=== PATIENT | female | born 1995 | race Caucasian/White ===

== ENCOUNTER 2019-12-17 17:39 | Inpatient (IN) ==
[2019-12-17] MEDS ORDERED: OXYTOCIN 30 UNITS/500 ML BAG IV PRN ×2 (18:39→22:08)
[2019-12-17] MEDS ORDERED: LACTATED RINGER'S 1,000 ML IV PRN (18:39)
[2019-12-17] MEDS ORDERED: PENICILLIN G POTASSIUM 3 MU in DEXTROSE 5% 100 ML IV PRN (18:39)
--- NOTE | 2019-12-17 18:47 | History & Physical Report ---
Date of Service December 17, 2019 Assessment & Plan (1) Normal labor: IUP at term in labor with SPROM GBS positive will start PCN prophylaxis. anticipate vaginal planning to go unmedicated if she can Present on Admission?: Yes (2) Carrier of group B Streptococcus: Present on Admission?: Yes History of Present Illness Primary Care Provider: NO PCP Patient is a 24 yo white female EDC 12/29/19 who presents with SPROM of copious bloody fluid & regular ctns. has otherwise been uncomplicated except for GBS positive status. Allergies Allergy/AdvReac Type Severity Reaction Status Date / Time No Known Drug Allergies Allergy Verified 12/16/19 11:11 Home Medications Home Medications Medication Instructions Recorded Confirmed Type esomeprazole magnesium PO 06/28/19 12/16/19 History prenat.vits,mikael,uat-yzcs-tleab 1 tab PO DAILY 07/11/19 12/16/19 History Patient History Medical History (Updated 12/17/19 @ 18:49 by Glendy Velez MD, FACOG) History of asthma History of depression History of migraine History of varicella vaccination Nausea and vomiting in (Inactive) Surgical History S/P wisdom tooth extraction Social History Preferred Language: Slovak marital status: Current Living Situation: Spouse Other Information That Helps Us Care for You: No Feels Safe at Home: Yes Safety Concerns: Feels Safe At This Time Smoking Status: Never smoker Hx Alcohol Use: No Hx Substance Use: No Review of Systems All systems reviewed & are unremarkable except as noted in HPI & below Physical Exam Constitutional: WD/WN, vitals as above Respiratory: normal respiratory effort, lungs clear to auscultation Cardiovascular: RRR, no murmur, no edema Gastrointestinal (Abdomen): normal bowel sounds, soft, nontender, no hepatosplenomegaly Psychiatric: A+Ox3, euthymic affect Genitourinary: OB Exam Abdomen: + vertex, + estimated weight (7-8 pounds) and + regular contractions (4-5 minutes) Manual OB Exam: + cervical dilation 3 cm, + cervical effacement 50%, + station high and + amniotic fluid bloody OB Exam Monitor Tracing: + external FHT monitor used, + external uterine monitor used, + category I and + normal FHT variability Results & Data Vital Signs (Past 12 Hours) Vital Signs Temp Pulse Resp BP 12/17/19 18:08 97.9 F 20 12/17/19 17:49 109 H 135/80
[2019-12-17 19:00] LABS: Hematocrit (blood only) 35.5 % (37-47); Hemoglobin 11.6 g/dL (12.0-16.0); Mean Corpuscular Hemoglobin 31.2 pg (25-34); Mean Corpuscular Volume 95.4 fL (80-100); Platelet Count 226 K/uL (130-400); RDW Coefficient of Variation 14.1 % (11.5-14.5); Red Blood Count 3.72 M/uL (4.2-5.4); White Blood Count 9.38 K/uL (4.8-10.8)
[2019-12-17] MEDS ORDERED: PENICILLIN G POTASSIUM 6 MU in DEXTROSE 5% 250 ML IV ONE (19:00)
[2019-12-17 19:02] LABS: Mean Corpuscular Hgb Conc 32.7 g/dL (32-36)
[2019-12-17] MEDS ORDERED: fentaNYL 2MCG/ML ROPIV 1.25MG/ML 100 ML BAG EPI ONE (23:08)
[2019-12-17] MEDS ORDERED: fentaNYL citrate 100 MCG/2 ML VIAL ONE (23:08)
[2019-12-17] MEDS ORDERED: ePHEDrine sulfate 50 MG/ML AMP ONE (23:08)
[2019-12-17] MEDS ORDERED: BUPIVACAINE 0.25% 30 ML VIAL ONE (23:08)
--- NOTE | 2019-12-17 23:34 | Anesthesiology Consultation ---
Date of Service December 17, 2019 Assessment & Plan Chart Review Chart Review: Acceptable Risk for Labor Epidural Consults Requested none History Height/Weight Height: 5 ft 7 in Weight: 130.181 kg Allergies Allergy/AdvReac Type Severity Reaction Status Date / Time No Known Drug Allergies Allergy Verified 12/16/19 11:11 Medications Home Medications Medication Instructions Recorded Confirmed Last Taken esomeprazole magnesium [Nexium] 20 mg PO DAILY 12/17/19 12/17/19 12/17/19 08:00 vit-iron fum-folic ac 1 tab PO DAILY 12/17/19 12/17/19 12/16/19 21:00 [ Vitamin] pseudoephedrine HCl [Sudafed] 30 mg PO Q6H PRN 12/17/19 12/17/19 12/17/19 10:00 Active Medications Generic Name Dose Route Start Last Admin Trade Name Freq PRN Reason Stop Dose Admin Lactated Ringer's 1,000 mls @ 125 mls/hr 12/17/19 18:39 12/17/19 23:13 Lr IV 12/19/19 18:38 999 mls/hr .Q8H PRN Infusion L&D Protocol Protocol Past Medical History Medical History History of asthma History of depression History of migraine History of varicella vaccination Nausea and vomiting in (Inactive) Past Family History Family History Mother Thyroid disease Past Surgical History Surgical History S/P wisdom tooth extraction Social History Smoking Status: Never smoker Hx Alcohol Use: No Hx Substance Use: No substance use type: does not use Physical Exam Vital Signs Last Vital Signs Temp 36.9 C 12/17/19 22:41 Pulse 92 H 12/17/19 18:54 Resp 20 12/17/19 18:55 BP 132/70 12/17/19 18:54 Testing Laboratory Results 12/17/19 18:48
[2019-12-17] MEDS ORDERED: fentaNYL 2MCG/ML ROPIV 1.25MG/ML 100 ML BAG EPI PRN (23:35)
[2019-12-17] MEDS ORDERED: NALBUPHINE HCL INJ 10 MG/ML AMP IV PRN (23:35)
[2019-12-17] MEDS ORDERED: DiphenhydrAMINE HCL 50 MG/ML VIAL IV PRN (23:35)
[2019-12-17] MEDS ORDERED: NALOXONE HCL 0.4 MG/1 ML VIAL/CARP IV PRN (23:35)
[2019-12-17] MEDS ORDERED: ePHEDrine sulfate 50 MG/ML AMP IV PRN (23:35)
[2019-12-17] MEDS ORDERED: NALOXONE HCL 1 MG in SODIUM CHLORIDE 0.9% 1000ML 1,000 ML IV PRN (23:35)
[2019-12-18] MEDS ORDERED: BENZOCAINE 20% AER SPR 82.5 GM CAN EXT PRN (02:57)
[2019-12-18] MEDS ORDERED: OXYTOCIN 30 UNITS/500 ML BAG IV PRN (02:57)
[2019-12-18] MEDS ORDERED: ACETAMINOPHEN 325 MG TAB PO PRN (02:57)
[2019-12-18] MEDS ORDERED: DIPHTHERIA/TETANUS/PERTUSSIS 0.5 ML SYR/VIAL IM ONE (02:57)
[2019-12-18] MEDS ORDERED: OXYCODONE/ACETAMINOPHEN 5mg/325mg TAB PO PRN (02:57)
[2019-12-18] MEDS ORDERED: bisacodyL 10 MG SUPP PR PRN (02:57)
[2019-12-18] MEDS ORDERED: HYDROCORTISONE ACETATE 25 MG SUPP PR PRN (02:57)
[2019-12-18] MEDS ORDERED: SUPERCREAM 0.870% 15 GM JAR EXT PRN (02:57)
[2019-12-18] MEDS: IBUPROFEN 600 MG TAB PO PRN ×4 (04:51→20:15)
--- NOTE | 2019-12-18 08:07 | Delivery Summary ---
DATE OF OPERATION: 12/18/2019 The patient is a 24-year-old 2, para 1-0-0-1 white female, EDC of [birth year]/29/[birth year]19, who presented at 38 and 3/7th weeks with ruptured membranes for copious amount of blood-tinged fluid. She was 3 cm upon arrival in Labor and Delivery. She was requesting epidural analgesia and Pitocin was begun shortly after this as she still remained at 3 cm dilated. She progressed to full dilation and pushed effectively over intact perineum for delivery of a viable female . There was a tight nuchal cord after delivering the head which was clamped and cut prior to delivering the rest of the . The rest of the delivered easily and was placed on the mother's abdomen for further attention and drying. There was spontaneous crying and the infant was moving all 4 limbs. The placenta followed shortly after intact with a 3-vessel cord. There did not appear to be any evidence of abruption on the placenta on inspection. The heart tones remained category 1, some occasional variable throughout her labor and pushing stage. The bladder was drained for 200 mL of clear urine after the delivery and there was 200 mL EBL. A first-degree perineal laceration was repaired with 3-0 chromic in the usual fashion. A 1% lidocaine was used to anesthetize the area of the repair prior to repairing the perineal tear. Mother and were doing well after delivery. I attest to the content of the Intraoperative Record and any orders documented therein. Any exception s are noted below.
--- NOTE | 2019-12-18 08:35 | Anesthesia Procedure Note ---
Date of Service December 18, 2019 Anesthesia Post Epidural Note Vital Signs Vital Signs: Temp Pulse Resp BP Pulse Ox 36.8 C 93 H 18 108/73 97 12/18/19 05:15 12/18/19 05:15 12/18/19 05:15 12/18/19 05:15 12/18/19 05:15 Pain Intensity Bilateral Episiotomy/Laceration: Pain Intensity: 2 Notes Mental Status: alert / awake / arousable Nausea / Vomiting: adequately controlled Pain: adequately controlled Airway Patency, RR, SpO2: stable & adequate BP & HR: stable & adequate Hydration State: stable & adequate Neuraxial Anesthesia: was administered and sensory block is resolving Anesthetic Complications: no major complications apparent and Pt Satisfied with anesthetic care Epidural: Removed without complications and With tip intact
[2019-12-18] MEDS: PRENATAL VITAMIN 1 TAB PO SCH (08:56)
[2019-12-18] MEDS: DOCUSATE SODIUM 100 MG CAP PO SCH ×2 (08:56→20:15)
[2019-12-19 06:20] LABS: Hematocrit (blood only) 33.2 % (37-47); Hemoglobin 10.7 g/dL (12.0-16.0); Mean Corpuscular Hemoglobin 31.4 pg (25-34); Mean Corpuscular Hgb Conc 32.2 g/dL (32-36); Mean Corpuscular Volume 97.4 fL (80-100); Mean Platelet Volume 10.1 fL (7.4-10.4); Platelet Count 206 K/uL (130-400); RDW Coefficient of Variation 14.5 % (11.5-14.5); RDW Standard Deviation 51.8 fL (36.4-46.3); Red Blood Count 3.41 M/uL (4.2-5.4); White Blood Count 8.39 K/uL (4.8-10.8)
--- NOTE | 2019-12-19 06:24 | Obstetrical Progress Note ---
Date of Service <Mary Dumont DO - Last Filed: 12/19/19 06:54> December 19, 2019 Assessment & Plan <Mary Dumont DO - Last Filed: 12/19/19 06:54> (1) Encounter for care and examination after delivery: 24 yo F PPD #1 following vaginal delivery at 38.3w, doing well and without complaints this morning. - PPD #1. - Feels well, ambulating well, voiding well. - Will continue routine care. - Following d/c will have f/u in 6 weeks. - Adequately treated with Pencillin for GBS +. Subjective <Mary Dumont DO - Last Filed: 12/19/19 06:54> Alyssa is a 24 yo female ; PPD # 1 following vaginal delivery at 38.3weeks; doing well this AM; no abdominal cramping/pain; voiding well; tolerating meals overnight, able to ambulate some within the room. Breast feeding is "going well this time around". Review of Systems Constitutional: denies fever, chills, sweats, headache Respiratory: denies SOB, difficulty breathing Cardiac: denies CP, chest palpitations, chest pressure Breast: denies breast pain : denies dysuria Physical Exam <Mary Dumont DO - Last Filed: 12/19/19 06:54> General: patient is alert and oriented, in NAD Cardiac: +S1/S2, no murmurs rubs or gallops Respiratory: lungs CTA b/l, anteriorly and posteriorly, no wheezes rales or rhonchi, no increased work of breathing, symmetric chest rise, no respiratory distress Abdomen: soft, NT, +bowel sounds Uterus: uterine fundus firm, palpable below the level of the umbilicus Lower Extremities: no LE edema or swelling, no deep calf pain, Adryan's sign negative b/l Results & Data <Mary Dumont DO - Last Filed: 12/19/19 06:54> Vital Signs (Past 12 Hours) Vital Signs Temp Pulse Resp BP 12/19/19 00:15 36.9 C 58 L 18 106/64 12/18/19 19:59 36.8 C 80 18 106/68 Laboratory Results Laboratory Results - last 24 hr 12/19/19 05:56 WBC 8.39 RBC 3.41 L Hgb 10.7 L Hct 33.2 L MCV 97.4 MCH 31.4 MCHC 32.2 RDW Std Deviation 51.8 H RDW Coeff of Josef 14.5 Plt Count 206 MPV 10.1 Medications Administered Current Medications Acetaminophen (Tylenol) 650 mg PO Q6H PRN PRN Reason: Pain/CROOKS/Fever Stop: 01/17/20 02:56 Benzocaine (Dermoplast Pain Relieving [place]) 1 appln EXT PRN PRN PRN Reason: Perineal Discomfort Stop: 01/17/20 02:56 Last Admin: 12/18/19 05:35 Dose: 82.5 appln Documented by: Bisacodyl (Dulcolax) 5 mg PO 1999 [facility] Stop: 12/19/19 20:01 Bisacodyl (Dulcolax) 10 mg FL DAILY PRN PRN Reason: No BM on 2nd post- day Stop: 01/17/20 02:56 Cocaine HCl (Supercream 0.870%) 1 gm EXT BID PRN PRN Reason: Hemorrhoidal Inflammation Stop: 01/01/20 02:56 Docusate Sodium (Colace) 100 mg PO DAILY@08,21 [facility] Stop: 01/17/20 07:59 Last Admin: 12/18/19 20:15 Dose: 100 mg Documented by: Hydrocortisone (Anusol Hc) 25 mg FL BID PRN PRN Reason: Hemorrhoidal Inflammation Stop: 01/17/20 02:56 Lactated Ringer's (Lr) 1,000 mls @ 125 mls/hr IV .Q8H PRN; Protocol PRN Reason: L&D Protocol Stop: 12/19/19 18:38 Last Infusion: 12/18/19 05:58 Dose: Infused Documented by: Oxytocin (Pitocin) 30 units in 500 mls @ 333.333 mls/hr IV .Q1H30M PRN; Protocol PRN Reason: Bleeding Control Stop: 01/16/20 18:38 Oxytocin (Pitocin) 30 units in 500 mls @ 333 mls/hr IV .Q1H31M PRN; Protocol PRN Reason: Labor Induction/Augmentation Stop: 12/19/19 22:07 Last Titration: 12/18/19 05:58 Dose: Infused Documented by: Oxytocin (Pitocin) 30 units in 500 mls @ 333.333 mls/hr IV .Q1H30M PRN; Protocol PRN Reason: Bleeding Control Stop: 01/17/20 02:56 Ibuprofen (Motrin) 600 mg PO Q4H PRN PRN Reason: Pain/CROOKS/Cramping/Fever Stop: 01/17/20 02:56 Last Admin: 12/18/19 20:15 Dose: 600 mg Documented by: Oxycodone/Acetaminophen (Percocet 5mg/325mg) 1 tab PO Q4H PRN PRN Reason: Pain not relieved by... Stop: 01/01/20 02:56 Prenat Multivit/[place]/Iron/Folic Ac ( Vitamin) 1 tab PO DAILY@08 ARIEL Stop: 01/17/20 07:59 Last Admin: 12/18/19 08:56 Dose: 1 tab Documented by: <Glendy Velez MD, FACOG - Last Filed: 12/19/19 07:29> Co-Signing Physician Notes Resident Physician Supervision Note: I interviewed and examined the patient. Discussed with Dr. Leighton Dumont and agree with findings and plan as documented in the note. Any exceptions or clarifications are listed here: [None] Documented By: Glendy Velez MD, FACOG Resident Activity Tracking <Mary Dumont DO - Last Filed: 12/19/19 06:54> Resident Involvement: Resident Care Provided Care Provided: OB Delivery
[2019-12-19] MEDS: PRENATAL VITAMIN 1 TAB PO SCH (08:32)
[2019-12-19] MEDS: DOCUSATE SODIUM 100 MG CAP PO SCH (08:32)
[2019-12-19] MEDS: IBUPROFEN 600 MG TAB PO PRN ×2 (08:32→11:56)
[2019-12-19] MEDS ORDERED: bisacodyL 5 MG TABEC PO SCH (20:00)
== END 2019-12-19 16:50 | disposition home or self-care (01) | DRG 807 ==
LOC: OPB 17:39 → 4S1 17:41 → 4S2 12-18 05:14